=== PATIENT | female | born 1980 | race Caucasian/White ===

== ENCOUNTER 2022-10-29 16:45 | Emergency (ER) | payer OTHER ==
[2022-10-29 16:53] VITALS: BP 111/66; PULSE 86; RESP 18; TEMP 98.3; BMI 23.6
[2022-10-29] MEDS ORDERED: MAG HYDROX/AL HYDROX/SIMETH 30 ML UNIT-DOSE CUP PO ONE (17:41)
[2022-10-29] MEDS ORDERED: FAMOTIDINE 20 MG TABLET PO ONE (17:41)
[2022-10-29] MEDS ORDERED: FAMOTIDINE 20 MG TABLET ONE (17:50)
[2022-10-29] MEDS ORDERED: MAG HYDROX/AL HYDROX/SIMETH 30 ML UNIT-DOSE CUP ONE (17:51)
[2022-10-29 18:24] LABS: BASO % 0.3 % (0-2.0); EOS % 0.8 % (0-4.5); HEMATOCRIT 36.9 % (32.4-45.2); LYMPH % 20.3 % (8-40); MCH 31.3 pg (25.7-33.7); MCHC 32.4 g/dl (32.0-36.0); MEAN CELL VOLUME 96.5 fl (80-96); MEAN PLT VOLUME 10.9 fl (7.5-11.1); MONO % 6.1 % (3.8-10.2); NEUT % 72.5 % (42.8-82.8); PLATELET COUNT 183 10^3/uL (134-434); RBC 3.82 M/mm3 (3.60-5.2); RDW 14.2 % (11.6-15.6); WHITE BLOOD COUNT 10.7 K/mm3 (4.0-10.0)
[2022-10-29 18:26] LABS: HCG,QUALITATIVE URINE Negative
[2022-10-29 19:17] LABS: POTASSIUM 4.3 mmol/L (3.5-5.1)
[2022-10-29 19:20] LABS: URINE APPEARANCE CLEAR; URINE BILIRUBIN NEGATIVE (NEGATIVE); URINE COLOR YELLOW; URINE GLUCOSE (UA) NEGATIVE (NEGATIVE); URINE KETONE NEGATIVE (NEGATIVE); URINE LEUK ESTERASE NEGATIVE (NEGATIVE); URINE NITRITE NEGATIVE (NEGATIVE); URINE PROTEIN NEGATIVE (NEGATIVE); URINE UROBILINOGEN 0.2 mg/dL (0.2-1.0)
[2022-10-29 19:21] LABS: ALBUMIN 3.9 g/dl (3.4-5.0); BLOOD UREA NITROGEN 19.3 mg/dL (7-18)
[2022-10-29 19:24] LABS: CREATININE 0.7 mg/dL (0.55-1.3)
[2022-10-29 19:25] LABS: BILIRUBIN,TOTAL 0.2 mg/dL (0.2-1); TOT PROT 6.9 g/dl (6.4-8.2)
[2022-10-29] MEDS ORDERED: PANTOPRAZOLE 40 MG TABLET PO ONE ×2 (19:25→19:47)
== END 2022-10-29 21:11 | disposition home or self-care (01) ==
LOC: JER 16:45
DX: R10.13 Epigastric pain (principal); K21.9 Gastro-esophageal reflux disease without esophagitis
CPT/HCPCS: 36415; 71046-TC-FY; 80053; 81003; 83690; 84703; 85025; 87086; 99284-25

== ENCOUNTER → 2023-01-20 | Day surgery (SDC) | payer OTHER | END | disposition home or self-care (01) | LOC: FMAMMOTONE 08:25 | PROVIDERS: ATTEND Physician Assistant | PROC: 0HBU3ZX Excision of Left Breast, Percutaneous Approach, Diagnostic (ICD-10-PCS; principal; 2023-01-20) | DX: R92.1 Mammographic calcification found on diagnostic imaging of breast (principal); N64.89 Other specified disorders of breast | CPT/HCPCS: 19081; 76098-TC-FY; 87899; 88305-TC; A4648 ==

== ENCOUNTER 2023-03-17 15:57 | Emergency (ER) | payer OTHER ==
[2023-03-17 16:05] VITALS: BP 101/61; PULSE 101; RESP 18; TEMP 98.1; BMI 23.6
[2023-03-17] MEDS ORDERED: predniSONE 20 MG TABLET (UD) PO ONE (17:20)
[2023-03-17] MEDS ORDERED: ACETAMINOPHEN 500 MG TABLET (FP) PO ONE (17:20)
[2023-03-17] MEDS ORDERED: ACETAMINOPHEN 500 MG TABLET (FP) ONE (17:26)
[2023-03-17] MEDS ORDERED: predniSONE 20 MG TABLET (UD) ONE (17:27)
== END 2023-03-17 18:40 | disposition home or self-care (01) ==
LOC: JERFT 15:57
DX: M54.32 Sciatica, left side (principal); K59.00 Constipation, unspecified; M54.50 Low back pain, unspecified
CPT/HCPCS: 74018-TC-FY; 99283-25

== ENCOUNTER 2023-04-19 16:26 | Emergency (ER) | payer SELFPAY ==
[2023-04-19 16:59] VITALS: BP 101/64; PULSE 94; RESP 18; TEMP 98.1; BMI 23.6
[2023-04-19] MEDS ORDERED: KETOROLAC TROMETHAMINE 30 MG/1 ML VIAL ONE (18:31)
[2023-04-19] MEDS: KETOROLAC TROMETHAMINE 30 MG/1 ML VIAL IM ONE (18:36)
== END 2023-04-19 19:10 | disposition home or self-care (01) ==
LOC: JERFT 16:26
PROC: 3E0233Z Introduction of Anti-inflammatory into Muscle, Percutaneous Approach (ICD-10-PCS; principal; 2023-04-19)
DX: J32.9 Chronic sinusitis, unspecified (principal); R51.9 Headache, unspecified; H92.01 Otalgia, right ear; R05.9 Cough, unspecified; J02.9 Acute pharyngitis, unspecified; M54.2 Cervicalgia; Z20.822 Contact with and (suspected) exposure to COVID-19
CPT/HCPCS: 0241U-QW; 87633; 99284-25